=== PATIENT | male | born 1965 | race Caucasian/White ===

== ENCOUNTER 2023-10-28 23:05 | Emergency (ER) | payer OTHER ==
[~2023-10-28] VITALS: Ht 175.3 cm; Wt 70.0 kg
[2023-10-28 23:08] VITALS: TEMP 98.5; O2SAT 98
[2023-10-29 00:15] VITALS: BP 174/77; PULSE 100; RESP 19
[2023-10-29] MEDS: ONDANSETRON 4MG ODT PO ONE (00:15)
[2023-10-29] MEDS: HYDROCODONE/ACETAMINOPHEN 10/325MG TABLET PO ONE (00:15)
[2023-10-29 00:36] LABS: BASOPHILS % 0.7 % (0.0-2.0); EOSINOPHILS % 0.5 % (0.0-5.0); HEMATOCRIT. 41.3 % (42.0-52.0); HEMOGLOBIN. 13.9 g/dL (14.0-18.0); LYMPHOCYTES % 12.8 % (20.0-50.0); MEAN CORPUSCULAR HEMOGLOBIN 29.1 pg (28.0-32.0); MEAN CORPUSCULAR HGB CONC 33.6 g/dL (31.0-37.0); MEAN CORPUSCULAR VOLUME 86.7 fL (80.0-94.0); MEAN PLATELET VOLUME 10.3 fl (7.4-10.4); MONOCYTES % 5.5 % (2.0-8.0); NEUTROPHILS % 80.5 % (40.0-76.0); PLATELET 207 x1000/uL (130-400); RED BLOOD CELL COUNT 4.77 mill/uL (4.7-6.1); RED CELL DISTRIBUTION WIDTH 13.7 % (11.6-14.6); WHITE BLOOD COUNT 15.1 x1000/uL (4.5-11.0)
[2023-10-29 00:52] LABS: ALANINE AMINOTRANSFERASE 29 IU/L (10-49); ALBUMIN 4.5 g/dL (3.2-4.8); ASPARTATE AMINOTRANSFERASE 41 IU/L (<34); BILIRUBIN TOTAL 0.8 mg/dL (0.1-1.0); CALCIUM 9.6 mg/dL (8.7-10.4); CARBON DIOXIDE 25 mEq/L (21-32); CHLORIDE 104 mEq/L (98-107); CREATININE 0.8 mg/dL (0.6-1.3); GLUCOSE 127 mg/dL (70-105); PROTEIN TOTAL 8.1 g/dL (6.0-8.3); SODIUM 138 mEq/L (136-145); TROPONIN I HIGH SENSITIVITY 6 ng/L (3.0-53); UREA NITROGEN BLOOD 18 mg/dL (9-23)
[2023-10-29] MEDS: POTASSIUM CHLORIDE 20MEQ TABLET SR PO NR (01:15)
[2023-10-29] MEDS ORDERED: CYCL5TAB MT (02:24)
[2023-10-29] MEDS ORDERED: IBUP-2029 MT (02:24)
== END 2023-10-29 03:49 | disposition left against medical advice (07) ==
LOC: ER 23:05
DX: R51.9 Headache, unspecified (principal); R07.89 Other chest pain; R11.0 Nausea; Z86.73 Personal history of transient ischemic attack (TIA), and cerebral infarction without residual deficits
CPT/HCPCS: 99284; 70450; 80053; 85025; 84484; 36415; 72125; 71250; 93005; Q0162